=== PATIENT | male | born 1990 | race Caucasian/White ===

== ENCOUNTER 2020-12-11 23:14 | Emergency (ER) | payer OTHER ==
[~2020-12-11] VITALS: Ht 185.4 cm; Wt 104.3 kg
[2020-12-11] MEDS ORDERED: SILVER SULFADIAZINE 1 % TOPICAL CREAM 50GM TOP ONE (23:30)
[2020-12-12] MEDS ORDERED: ACETAMINOPHEN/CODEINE#3 (300/30mg) TAB PO ONE
[2020-12-12 02:50] VITALS: BP 129/71
== END 2020-12-12 02:52 | disposition home or self-care (01) ==
LOC: ER 23:14
DX: T20.17XA Burn of first degree of neck, initial encounter (principal); T20.112A Burn of first degree of left ear [any part, except ear drum], initial encounter; X10.2XXA Contact with fats and cooking oils, initial encounter; Y93.89 Activity, other specified; Y92.89 Other specified places as the place of occurrence of the external cause; Y99.8 Other external cause status